=== PATIENT | female | born 1930 | race Caucasian/White ===

== ENCOUNTER 2016-06-26 02:17 | Emergency (ER) | payer MEDICARE, OTHER ==
--- NOTE | 2016-06-26 02:37 | EDPRACDOC ---
- General Information Chief Complaint: Headache Stated Complaint: HEAD PAIN Time Seen by Provider: 06/26/16 02:29 Home Medications: Home Medications Cyclobenzaprine HCl [Flexeril] 10 mg PO TID PRN #20 tablet 06/26/16 Hydrocodone Bit/Acetaminophen [Hydrocodon-Acetaminophen 5-325] 1 tab PO Q6 PRN # 15 tab 06/26/16 - History of Present Illness Onset: FRIDAY HPI: PT COMPLAINS OF RIGHT SIDED POSTERIOR HEADACHE THAT BEGAN FRIDAY, STATES WENT AWAY FRIDAY NIGHT BUT RETURNED ON FRIDAY, STATES PAIN HAS PERSISTED ALL DAY, THROBBING, SEVERE, WORSE WITH TURNING HER HEAD, NO FEVER OR CHILLS, NO N/V, NO PHOTOPHOBIA, PT STATES THAT SHE HAS AN APPT WITH HER PCP TODAY BUT DECIDED TO COME TONIGHT. PT STATES HAS USED IBUPROFEN WITHOUT RELIEF. Location: Reports: Occipital Pain Quality: Reports: Severe, Throbbing Modifying Factors: improves with: Movement Prior work up: Denies: NO, O, CT, LP, MRI, Neurologist Relevant History of: Reports: None Associated Signs and Symptoms: Reports: Occasional Headache. Denies: Confusion , Fatigue, Facial Pain, Fever/Chills, Flushing, Loss of Consciousness, Nausea/ Vomiting, Nasal Congestion, Nasal Drainage, Numbness in Legs/Feet, Rash, Seizures, Sinus Infection, Stiff Neck, Vision Changes, Weakness ED Past Medical History - History Reviewed Yes Nurses notes reviewed and agree except as marked No Past Medical History: Yes Patient has no past medical history - Social Medical History Smoking Status: Never smoker ETOH: None Substance Abuse: None EDM Review of Systems - Review of Systems Constitutional: negative: Chills, Fever Eyes: negative: Blurred Vision, Double Vision, Light Sensitive, Photophobia Ears: negative: Drainage Throat: negative: Pain Nose: negative: Congestion, Discharge Respiratory: negative: Cough, Shortness of Breath, Wheezing Cardiovascular: negative: Chest Pain, Palpitations Gastrointestinal: negative: Diarrhea, Nausea, Pain, Vomiting Genitourinary: negative: Dysuria, Frequency Neurological: Headache. negative: Dizziness, Numbness, Weakness Musculoskeletal: Neck Integumentary: No Symptoms Reported - Physical Exam Constitutional: Alert (Awake), No apparent distress Oriented to: Time, Person, Place Last recorded Vital Signs: Oxygen Pulse Oxygen Saturation O2 Device Oxygen Flow Rate Fraction of Inspired Oxygen ( FIO2) - HEENT Head: Normal ( normocephalic) Eye Exam: Normal (PERRL, EOMI, Sclera white) Oropharynx: Normal (Pharynx:Moist without exudate,Gums-no swelling) Tympanic Membrane: Normal ENT EAC: Normal TMJ: Normal Nose: No Symptoms Reported (septum midline) Neck: Tender (RIGHT CERVICAL PARASPINOUS) - Respiratory/Cardiovascular Respiratory: Normal - CTA (BBS clear to auscultation without adventitious sounds ) Cardiovascular: Normal (RRR without murmur, gallop or rub) - GI Auscultation: Normal (NABS) Palpation: Normal (Soft,No rebound or guarding, non distended) Tenderness: Non tender Sharif's Sign: Negative - Musculoskeletal Back: Normal (Non-Tender) Extremities: Normal (Normal tone, Pulses 2+ No cyanosis or edema, FROM) - Integumentary Skin: Normal, Warm, Dry Lymphatics: Normal (no adenopathy) - Neurologic Memory Impaired: Normal Motor Function: Normal (Normal tone, Pulses 2+ No cyanosis or edema, FROM) Cranial Nerve: Normal (CN II-X11 intact sensation, strength 5/5) Cerebellar: Normal Mood Description: Normal Perception: Normal - Differential Diagnosis Cluster, Migraine, Muscular Contraction - Re-evaluation Re-evaluation 1 Re-evaluation Time: 03:56 (CONT TO COMPLAIN OF HEADACHE, NO DISTRESS, NO NEUROLOGIC DEFICITS) - Diagnostic Imaging CT HEAD Image interpreted by: Radiologist CT HEAD WITHOUT CONTRAST TECHNIQUE: Contiguous axial images were obtained from the base of the skull through the vertex without intravenous contrast. COMPARISON: None. FINDINGS: There is slight prominence of the ventricles and sulci compatible with age-related volume loss. Moderate periventricular and deep white matter hypodensities represent chronic microvascular ischemic changes. There is no intracranial hemorrhage. No mass effect or midline shift identified. The visualized paranasal sinuses and mastoid air cells are well aerated. The calvarium is intact. IMPRESSION: No acute intracranial hemorrhage. Age-related atrophy and chronic microvascular ischemic disease. If symptoms persist and there are no contraindications, MRI may provide better evaluation if clinically indicated. Decision Time to Discharge: 03:58 - Departure Disposition: Home Condition: Stable Final Diagnosis: Tension-type headache Instructions: Tension Headache (ED) Education/Counseling Given To: Patient Education/Counseling Given Regarding: Diagnosis, Treatment, Prognosis, Follow Up Referrals: Otis Mendoza MD [Primary Care Provider] - One Week Prescriptions: New Cyclobenzaprine HCl [Flexeril] 10 mg PO TID PRN #20 tablet PRN Reason: Muscle Spasms Hydrocodone Bit/Acetaminophen [Hydrocodon-Acetaminophen 5-325] 1 tab PO Q6 PRN #15 tab PRN Reason: Pain Additional Instructions: FOLLOW UP WITH DR MENDOZA TODAY SCHEDULED, APPLY WARM COMPRESSES TO AREA OF PAIN 20 MINS AT A TIME 4-5 TIMES DAILY NEEDED FOR PAIN, RETURN TO THE ED FOR ANY WORSENING SYMPTOMS OR CONCERNS.
[2016-06-26] MEDS ORDERED: DIAZEPAM 5 MG TAB PO ONE (02:38)
[2016-06-26] MEDS ORDERED: KETOROLAC TROMETHAMINE 10 MG TAB PO ONE (02:38)
[2016-06-26 02:56] VITALS: TEMP 97.7; BMI 21.4
--- NOTE | 2016-06-26 03:53 | DIRPT ---
CLINICAL DATA: 85-year-old female with headache EXAM: CT HEAD WITHOUT CONTRAST TECHNIQUE: Contiguous axial images were obtained from the base of the skull through the vertex without intravenous contrast. COMPARISON: None. FINDINGS: There is slight prominence of the ventricles and sulci compatible with age-related volume loss. Moderate periventricular and deep white matter hypodensities represent chronic microvascular ischemic changes. There is no intracranial hemorrhage. No mass effect or midline shift identified. The visualized paranasal sinuses and mastoid air cells are well aerated. The calvarium is intact. IMPRESSION: No acute intracranial hemorrhage. Age-related atrophy and chronic microvascular ischemic disease. If symptoms persist and there are no contraindications, MRI may provide better evaluation if clinically indicated. Electronically Signed By: Ed Stoddard M.D. On: 06/26/2016 03:50
[2016-06-26] MEDS ORDERED: HYDROCODONE 5 MG/ACETAMIN 325 MG TAB PO ONE (04:00)
[2016-06-26 04:11] VITALS: BP 153/71; PULSE 70
== END 2016-06-26 04:09 | disposition home or self-care (01) ==
LOC: ED 02:17
DX: G44.209 Tension-type headache, unspecified, not intractable (principal)
CPT/HCPCS: 70450; 99284; A9270; J3490